=== PATIENT | male | born 1990 | race Caucasian/White ===

== ENCOUNTER 2017-03-30 18:21 | Emergency (ER) | payer OTHER ==
[~2017-03-30] VITALS: Ht 177.8 cm; Wt 164.3 kg
[2017-03-30 18:26] VITALS: BP 155/111
--- NOTE | 2017-03-30 19:57 | NUR ---
PT taken to bed 6.
--- NOTE | 2017-03-30 20:40 | NUR ---
26M BIB FAMILY TO ED WITH C/O LOSS OF HEARING TO RIGHT EAR AND DIZZINSS X 1300 TODAY; PT STATES " ALL OF A SUDDEN I COULDN'T HEAR FROM MY RIGHT EAR. IT FEELS LIKE IT'S PLUGGED"; PT STATES NO TRAUMA OR INJURY TO SITE AT THIS TIME. HX: HTN, NO MEDICATION. AAO X4, AMBULATORY WITH STEADY GAIT. RT. EAR LOSS OF HEARING. RESPIRATIONS ROOM AIR, EVEN AND UNLABORED. VSS, NO S/SX OF DISTRESS AT THIS TME. ER MD MADE AWARE OF PT. STATUS.
--- NOTE | 2017-03-30 20:41 | NUR ---
Dr. Feliz evaluating patient at bedside.
--- NOTE | 2017-03-30 20:55 | NUR ---
Patient discharged with v/s stable. Written and verbal after care instructions given and explained. Patient alert, oriented and verbalized understanding of instructions. Ambulatory with steady gait. All questions addressed prior to discharge. ID band removed. Patient advised to follow up with PMD. Rx of AUGMENTIN 875 MG given. Patient educated on indication of medication including possible reaction and side effects. Opportunity to ask questions provided and answered.
[2017-03-30 21:31] VITALS: BP 150/97
== END 2017-03-30 20:55 | disposition home or self-care (01) ==
LOC: MED 18:21
DX: H66.91 Otitis media, unspecified, right ear (principal); I10 Essential (primary) hypertension
CPT/HCPCS: 99283

== ENCOUNTER 2018-01-08 09:45 | Emergency (ER) | payer OTHER ==
[~2018-01-08] VITALS: Ht 175.3 cm; Wt 158.8 kg
[2018-01-08 09:48] VITALS: BP 160/79
--- NOTE | 2018-01-08 10:15 | NUR ---
27M BIB SIGNIFICANT OTHER WITH C/O INTERMITTENT 1ST 2ND AND 3TH DIGIT OF BL HANDS NUMBNESS AND TINGLING X 8 MONTHS. PT DENIES ANY INJURY. CMS INTACT TO BL UPPER EXTREMITIES; PT DENIES ANY PAIN, CP, OR SOB. PT IS AOX4 WITH STEADY GAIT. RR ARE EVEN AND UNLABORED. NO ACUTE DISTRESS. ALL NEEDS MET AT THIS TIME. WILL CONTINUE TO MONITOR.
--- NOTE | 2018-01-08 10:57 | NUR ---
Patient discharged with v/s stable. Written and verbal after care instructions given and explained. Patient verbalized understanding. Ambulatory with steady gait. All questions addressed prior to discharge. Advised to follow up with PMD.
[2018-01-08 10:58] VITALS: BP 152/100
== END 2018-01-08 10:57 | disposition home or self-care (01) ==
LOC: MED 09:45
DX: R20.2 Paresthesia of skin (principal); I10 Essential (primary) hypertension
CPT/HCPCS: 82948; 99282

== ENCOUNTER 2019-03-25 20:40 | Emergency (ER) | payer OTHER ==
[~2019-03-25] VITALS: Ht 175.3 cm; Wt 152.9 kg
[2019-03-25 21:05] VITALS: BP 128/76
--- NOTE | 2019-03-25 21:13 | NUR ---
PT AMBULATED TO BED #9
--- NOTE | 2019-03-25 21:20 | NUR ---
XRAY AT BEDSIDE
--- NOTE | 2019-03-25 21:25 | NUR ---
Note undone in EDM - 03/25/19 at 2134 by [email or web address] PT CAME TO ER C/O OF CHEST DISCOMFORT X 1 MONTH. CHEST PAIN IS LEFT STERNAL, NONRADIATING. PAIN LEVEL IS 2/10, ACHING. PT ALSO C/O OF COUGH AT NIGHT X 2 MONTHS. PER PT HAS WHITE THICK PHLEGM, AND OCCASIONAL RUNNY NOSE. NO FEVER. LUNG SOUNDS ARE CLEAR BILATERALLY. MED HX: HTN AND DM. SAFETY MEASURES IN PLACE. ERMD AT BEDSIDE.
[2019-03-25 22:10] VITALS: BP 128/76
--- NOTE | 2019-03-25 22:10 | NUR ---
Patient discharged with v/s stable. Written and verbal after care instructions given and explained. Patient alert, oriented and verbalized understanding of instructions. Ambulatory with steady gait. All questions addressed prior to discharge. ID band removed. Patient advised to follow up with PMD. Rx of PREDNISONE, CLARITON, PROMETHAZINE WAS given. Patient educated on indication of medication including possible reaction and side effects. Opportunity to ask questions provided and answered.
== END 2019-03-25 22:10 | disposition home or self-care (01) ==
LOC: MED 20:40
DX: J30.9 Allergic rhinitis, unspecified (principal); I10 Essential (primary) hypertension; E11.9 Type 2 diabetes mellitus without complications
CPT/HCPCS: 71045; 82948; 99283; Q0092

== ENCOUNTER 2024-04-26 17:14 | Emergency (ER) | payer OTHER ==
[~2024-04-26] VITALS: Ht 177.8 cm; Wt 158.8 kg
[2024-04-26 17:16] VITALS: BP 162/96; PULSE 103; RESP 20; TEMP 97.8; O2SAT 97
[2024-04-26] MEDS ORDERED: IBUP-2218 PO (17:32)
[2024-04-26] MEDS ORDERED: METH-1681 PO (17:32)
[2024-04-26] MEDS ORDERED: LID5T TP (17:32)
[2024-04-26 17:41] VITALS: BP 145/82; PULSE 88; RESP 16; TEMP 98; O2SAT 98
== END 2024-04-26 17:41 | disposition home or self-care (01) ==
LOC: MED 17:14
DX: S39.012A Strain of muscle, fascia and tendon of lower back, initial encounter (principal); E11.9 Type 2 diabetes mellitus without complications; I10 Essential (primary) hypertension; Z79.1 Long term (current) use of non-steroidal anti-inflammatories (NSAID); Z79.899 Other long term (current) drug therapy; X58.XXXA Exposure to other specified factors, initial encounter; Y93.89 Activity, other specified; Y92.89 Other specified places as the place of occurrence of the external cause; Y99.8 Other external cause status
CPT/HCPCS: 99283